=== PATIENT | female | born 1970 | race Caucasian/White ===

== ENCOUNTER → 2016-09-29 | Outpatient (CLI) | payer BC ==
[~2016-09-29] MED LIST: NO MEDICATIONS
--- NOTE | ~2016-09-29 | MY11 ---
[facility] A Service of [facility] & [facility] RADIOLOGY TEXT RESULTS PATIENT: PENNY GARLAND LOCATION: [facility] : 70 UNIT #: [id number] AGE: [address]: Paz Howard MD SEX: F ORDER DR: [id number] [facility] [address]. [place], [place] [address] [id number] O MR#: [id number] Acc #: [id number] NAME: PENNY GARLAND. : 1970 SEX: F STUDY DATE/TIME: 09/29/2016 16:34 UNIT: [facility] ROOM: STUDY DESCRIPTION: MY Mammogram Screening Dig [place] Attending Physician: Paz Howard M.D. Ordering Physician: Paz Howard M.D. Primary Care Physician: Paz Howard M.D. MEDICAL IMAGING REPORT This report is preliminary unless electronic signature is present EXAM Bilateral digital screening mammogram with CAD. COMPARISON Breast ultrasound dated September 22, 2015, as well as mammograms dated October 09, 2015, September 01, 2015, August 05, 2014, July 22, 2013, July 11, 2012, May 31, 2011, April 27, 2010, and January 30, 2006. INDICATION Breast cancer screening. 45-year-old asymptomatic female. No personal or family history of breast cancer. FINDINGS There are scattered fibroglandular densities. In the 1 o'clock posterior third of the right breast, there is a stable mass going back to 2010. This measures approximately 2 cm x 1.4 cm by up to 1.5 cm. There are no suspicious findings in the right breast. In the central left breast in the middle and posterior thirds, there are single enlarging masses measuring up to 4 cm posteriorly and 2.1 cm anteriorly. More anterior of these masses reflects a simple cyst, seen on ultrasound of September 22, 2015. The other central posterior third mass measuring up to 4 cm was also previously evaluated on ultrasound and is very deep in the left breast. The saved images suggest some possible internal echoes, although I suspect this represents reverberation artifact or may be secondary to depth in the breast and/or technical factors as the ultrasound machine has been upgraded since that time. IMPRESSION 1. No mammographic evidence of malignancy in the right breast. 2. 2 enlarging left breast masses, 1 which is definitely a simple cyst based on ultrasound September 2015. The deeper mass was previously evaluated at that time and had features suggestive of a benign cyst, but there were some internal echoes on the saved images which I [facility] A Service of [facility] RADIOLOGY TEXT RESULTS PATIENT: PENNY GARLAND LOCATION: [facility] : 70 UNIT #: [id number] AGE: [address]: Paz Howard MD SEX: F ORDER DR: suspect either reflects reverberation artifact or may be due to technical factors as the ultrasound equipment has been upgraded since then. As a precaution, sonographic evaluation of the central posterior third of the left breast is recommended to re-characterize the enlarging mass in the central posterior third measuring up to 4 cm. Patients over the age of 40 are entered into a reminder system with target due date for the next mammogram. A result letter will also be sent to the patient. BIRADS: 0 Incomplete; need additional imaging evaluation and/or prior mammograms for comparison. Dictated by... Johnny Russell M.D. THIS IS AN ELECTRONICALLY VERIFIED REPORT Johnny Russell M.D. at 10/02/2016 5:22 PM FARIHA/yoli TD: 10/02/2016 09:46 JOB #: [id number] MEDICAL IMAGING REPORT Page 1 of 1 COPY
== END | disposition home or self-care (01) ==
LOC: CWCC 16:10
DX: Z12.31 Encounter for screening mammogram for malignant neoplasm of breast (principal); N63 Unspecified lump in breast; N60.02 Solitary cyst of left breast
CPT/HCPCS: G0202

== ENCOUNTER → 2016-10-09 | Outpatient (CLI) | payer BC ==
--- NOTE | ~2016-10-09 | US24 ---
[facility] A Service of [facility] & [facility] RADIOLOGY TEXT RESULTS PATIENT: PENNY GARLAND LOCATION: [facility] : 70 UNIT #: [id number] AGE: [address]: Paz Howard MD SEX: F ORDER DR: [id number] [facility] [address] [place], [place] [address] [id number] O MR#: [id number] Acc #: [id number] NAME: PENNY GARLAND. : 1970 SEX: F STUDY DATE/TIME: 10/09/2016 14:30 UNIT: [facility] ROOM: STUDY DESCRIPTION: US Breast Unilateral Attending Physician: Paz Howard M.D. Ordering Physician: Paz Howard M.D. Primary Care Physician: Paz Howard M.D. MEDICAL IMAGING REPORT This report is preliminary unless electronic signature is present EXAM Targeted ultrasound left breast 10/09/2016 INDICATION Enlarging mass in the left breast on recent mammogram 10/02/2016. History of cysts in the left breast. Repeat ultrasound of the cystic lesions in the left breast requested for reassessment. TECHNIQUE Targeted ultrasound of the left breast was performed with attention to the enlarging cyst in the deep left breast at 12 o'clock as well as the more anterior or superficial cyst at 12 o'clock based on the prior ultrasound and mammogram studies. COMPARISON Correlation is made with prior ultrasound 09/22/2015 and prior mammograms 09/22/2015 and 09/01/2015. FINDINGS LEFT BREAST: The patient was initially scanned independently by the technologist then rescanned in my presence. In the deep 12 o'clock position left breast, there is a benign cyst that has enlarged measuring 3.3 x 3.4 x 1.3 cm and previously measured up to 2.5 x 2.7 cm. It has benign features. No suspicious mural nodularity or internal color flow. There is posterior acoustical enhancement. Imaging features are most characteristic of an enlarging benign cyst. In the more anterior or superficial 12 o'clock left breast, there is redemonstration of a benign cyst measuring up to 1.9 x 0.9 cm, previously 1.4 x 0.7 cm. It also has benign features. Absent new or worsening symptoms in either breast, the patient should return for a repeat screening mammogram in September of 2017 to maintain an STS. [facility] A Service of [facility] & [facility] RADIOLOGY TEXT RESULTS PATIENT: PENNY GARLAND LOCATION: [facility] : 70 UNIT #: [id number] AGE: [address]: Paz Howard MD SEX: F ORDER DR: annual screening regimen. Findings and recommendations were discussed with the patient and she voiced understanding and agreement. IMPRESSION 1. Interval enlargement of previously documented benign cysts in the left breast at 12 o'clock. The deeper cyst now measures up to about 3.4 cm, previously 2.7 cm while the smaller cyst at 12 o'clock now measures up to 1.9 cm, previously 1.4 cm. These have benign features. Return to annual screening mammography is recommended. See discussion above. Patient's over the age of 40 are entered into a reminder system with target due date for the next mammogram. BIRADS: 2 Benign findings Dictated by... Saturnino Jones M.D. THIS IS AN ELECTRONICALLY VERIFIED REPORT Saturnino Jones M.D. at 10/09/2016 4:59 PM Sherie TD: 10/09/2016 15:56 JOB #: [id number] MEDICAL IMAGING REPORT Page 1 of 1 COPY
== END | disposition home or self-care (01) ==
LOC: CWCC 13:34
DX: N63 Unspecified lump in breast (principal); N60.02 Solitary cyst of left breast
CPT/HCPCS: 76641